=== PATIENT | male | born 1940 | race Caucasian/White ===

== ENCOUNTER → 2017-05-10 | Outpatient (CLI) | payer MEDICARE, BC ==
[~2017-05-10] MED LIST: ASPIRIN EC81 MG PO; CARDURA2 MG PO; CPAP INH; CRESTOR10 MG PO; GLUCOSE4 GM PO; HYDROCHLOROTH12.5 MG PO; LANTUS SOL100 UNIT/1 SUB-Q; LEVOTHROID (SY25 MCG PO; NOVOLOG FL100 UNIT/1 SUB-Q; TOPROL XL25 MG PO; ZYLOPRIM300 MG PO; ZYRTEC10 M3 PO
== END ==
LOC: GNJRC 11:00
DX: Z01.818 Encounter for other preprocedural examination (principal); M17.12 Unilateral primary osteoarthritis, left knee